=== PATIENT | female | born 1945 | race Two or more races ===

== ENCOUNTER 2021-04-14 13:14 | Emergency (ER) | payer OTHER ==
[~2021-04-14] VITALS: Ht 162.6 cm; Wt 54.4 kg
[2021-04-14 13:27] VITALS: BP 100/65
--- NOTE | 2021-04-14 13:27 | NUR ---
PATIENT BIBA TO BED 14.
--- NOTE | 2021-04-14 16:30 | NUR ---
MD Gasca at bedside to assess pt. Stone Breaker Ja [id number] used for all assessment along with daughter input.
--- NOTE | 2021-04-14 16:30 | NUR ---
75 Y/O F BIB for Gen weakness x 2 hours from home. Denies syncopal episode at this time. Pt is alert awake, GCS 15. Follows commans appropriately. Bilat equal strength. No facial droop at this time. No shoulder drift at this time. Denies N/V/D/CP at this time. PmHx: HTN, DM, HLD, Stroke(No deficits) Allergies: Denies
--- NOTE | 2021-04-14 17:12 | NUR ---
carmelo Nolasco GIVEN DIP URINE RESULTS
[2021-04-14 17:26] VITALS: BP 106/71
[2021-04-14] MEDS ORDERED: CIPR500T4 PO (18:13)
--- NOTE | 2021-04-14 18:28 | NUR ---
Patient discharged with v/s stable. Written and verbal after care instructions about urinary tract infection and weakness given and explained. Patient alert, oriented and verbalized understanding of instructions. Wheel Chair Assisted with to car. All questions addressed prior to discharge. ID band removed. Patient advised to follow up with PMD. Rx of cipro given. Patient educated on indication of medication including possible reaction and side effects. Opportunity to ask questions provided and answered.
== END 2021-04-14 18:28 | disposition home or self-care (01) ==
LOC: MED 13:14
DX: U07.1 COVID-19 (principal); R53.1 Weakness; E11.9 Type 2 diabetes mellitus without complications; I10 Essential (primary) hypertension
CPT/HCPCS: 81002; 99283